=== PATIENT | male | born 1990 | race Caucasian/White ===

== ENCOUNTER 2016-12-30 14:17 | Inpatient (IN) | payer BC, OTHER ==
[~2016-12-30] VITALS: Ht 175.3 cm; Wt 58.5 kg
--- NOTE | 2016-12-30 15:39 | NUR ---
INTAKE ASSESSMENT Patient is a 26 year old female admitting to [facility] for substance dependency. She is alert and orientated X4. Vital signs are within normal limits. Patient was able to answer the majority of questions for admission but is feeling nausea so will continue the admission questions once up on the unit. patient reported no known allergies and a history of seizures from withdrawal as of yesterday. Patient gait is unsteady at this moment. Dr. wong was notified. All safety measures in place. will continue to monitor patient.
--- NOTE | 2016-12-30 15:45 | NUR ---
ADMISSION NOTE VITALS: BP:137/92 HR:110 T: 96.4f O2:99% PAIN:8/10 HEIGHT: 59 WEIGHT:128 ALLERGIES: BAM Patient is a 26 year old female admitted to [facility] on 12/30/16 at 1545. Patient is under the care of Dr. Harris for ETOH, BENZO, and METH. Patient denies suicidal and homicidal ideations at this time. Patient denies being hospitalized in the past 30 days. Patient denies chest pain and SOB. Patient reports taking no home medications. Upon assessment patients skin is intact. CIWA12 upon admission. NKA, she is alert and orientated X4 and able to answer questions necessary for the admission process. Patient is a full code. Vital signs WNL, regular diet, patient reports having a seizure yesterday. Patient denies having a PCP. Breathing is even and unlabored, spO2 is 99% on room air. Patients gait is unsteady at this time and reports feeling extremely nausea from bad heart burn. Patient is on a 1:1 for seizure precautions. Patient has a history of anxiety and ulcerative colitis. Dr. Harris has been notified and has placed the client under observation. All needs have been met. patient has been orientated to her room and the unit. All safety measures are in place per hospital policy. Bed is in lowest position, side rails X2 up and padded, call light within reach. Will continue to monitor. SUBSTANCE ABUSE: 1.ETOH PO/RECTAL 1.7 L last used 12/29/16 been using for 11 years off and on 2.Xanax-PO 16 mg last used 12/29/16 for the past 1.5 years 3.Meth- smoked/rectal 8th a day used a few weeks ago used off /on for the past 6 years
[2016-12-30 16:10] VITALS: BP 137/92
[2016-12-30] MEDS ORDERED: DICYCLOMINE HCL 20 MG TABLET PO PRN (16:30)
[2016-12-30] MEDS ORDERED: THIAMINE HCL 200 MG/2 ML VIAL IM ONE (16:30)
[2016-12-30] MEDS ORDERED: ONDANSETRON 4 MG/2 ML VIAL IM PRN (16:30)
[2016-12-30] MEDS ORDERED: MIRALAX 17 GM POWD.PACK PO PRN (16:30)
[2016-12-30] MEDS ORDERED: ONDANSETRON ODT 4 MG TAB.RAPDIS SL PRN (16:30)
[2016-12-30] MEDS ORDERED: diphenhydrAMINE 50 MG CAPSULE PO PRN (16:30)
[2016-12-30] MEDS ORDERED: IBUPROFEN 400 MG TABLET PO PRN (16:30)
[2016-12-30] MEDS ORDERED: MAG HYDROX/AL HYDROX/SIMETH 30 ML LIQUID UDC PO PRN (16:30)
[2016-12-30] MEDS ORDERED: ACETAMINOPHEN 325 MG TABLET PO PRN (16:30)
[2016-12-30] MEDS ORDERED: DIAZEPAM 10 MG TABLET PO PRN ×2 (16:30)
[2016-12-30] MEDS ORDERED: DIAZEPAM 5 MG TABLET PO PRN (16:30)
[2016-12-30] MEDS ORDERED: MAGNESIUM HYDROXIDE 30 ML LIQUID UDC PO PRN (16:30)
[2016-12-30] MEDS ORDERED: LOPERAMIDE HCL 2 MG CAPSULE PO PRN ×2 (16:30)
[2016-12-30] MEDS ORDERED: LORAZEPAM 2 MG/1 ML VIAL IM PRN (16:30)
[2016-12-30] MEDS: DIAZEPAM 10 MG TABLET PO SCH ×2 (17:21→20:26)
[2016-12-30] MEDS: PANTOPRAZOLE SODIUM 40 MG TABLET.DR PO SCH (17:21)
[2016-12-30 18:26] LABS: *AMPHETAMINE, URINE POSITIVE (NEGATIVE); *BARBITURATE, URINE NEGATIVE (NEGATIVE); *CANNABINOID, URINE NEGATIVE (NEGATIVE); *COCCAINE, URINE NEGATIVE (NEGATIVE); *OPIATE, URINE NEGATIVE (NEGATIVE); *PHENCYCLIDINE SCREEN,URINE NEGATIVE (NEGATIVE)
--- NOTE | 2016-12-30 19:01 | NUR ---
END OF SHIFT NOTE Patient is a 26 years old admitted today for ETOH, XANAX, and METH. Patient has a history of anxiety an ulcerative colitis. NKA, full code, regular diet. Patient has a history of seizures with the most resent one yesterday 12/29/16 due from withdrawal. Patient is on a 1:1 for unsteady gait and seizure precaution. Patients vital signs are WNL. Last CIWA 12. 5 day Valium taper starting tomorrow. Skin is intact. All needs have been met. All safety measures in place. Will continue to monitor patient until endorsed to night nurse.
--- NOTE | 2016-12-30 19:35 | NUR ---
START OF SHIFT Received report from day shift nurse. Pt is lying in bed resting. He is a 26 yo male admitted to [facility] today for ETOH dependence. He is A&O x3 and ambulatory. Pt has a 1:[address] due to unsteady gait on admission. He reports still feeling weak. Pt has NKA, is full code status, and on a regular diet. PMH of seizure, anxiety, and ulcerative colitis. On admission he admitted to using ETOH 1.7L per day, xanax 16mg per day, and methamphetamine 1/8th per day. He started a 5 day valium taper today. Pt is observed to have sweat on the forehead and tremors. He reports acid indigestion and anxiety. Taper due tonight. Fall and seizure precautions ordered. Bed is down with call light in reach.
--- NOTE | 2016-12-30 19:42 | NUR ---
PRN Zofran and Mylanta Pt c/o nausea and acid indigestion. PRN Zofran and Mylanta administered.
[2016-12-30 20:00] VITALS: BP 147/94
--- NOTE | 2016-12-30 20:42 | NUR ---
PRN Zofran and Mylanta reassessment PRN Zofran effective. Pt reports nausea is relieved. PRN Mylanta somewhat effective. Pt reports acid indigestion only mildly reduced.
[2016-12-30] MEDS: FAMOTIDINE 20 MG TABLET PO PRN (20:43)
--- NOTE | 2016-12-30 20:44 | NUR ---
PRN Pepcid and Benadryl Pt reports continued acid indigestion and inability to sleep. PRN Pepcid and Benadryl administered.
[2016-12-30] MEDS ORDERED: GABAPENTIN 300 MG CAPSULE PO SCH (21:00)
--- NOTE | 2016-12-30 21:44 | NUR ---
PRN Pepcid and Benadryl reassessment PRN Pepcid and Benadryl effective. Pt is lying in bed resting with eyes closed. Respirations even and unlabored. 1:[address] for safety[address]
[2016-12-31] VITALS: BP 127/89
[2016-12-31 04:00] VITALS: BP 141/99
--- NOTE | 2016-12-31 04:00 | NUR ---
0400 CIWA deferred CIWA ordered Q4HWA. Pt is lying in bed resting with eyes closed. Vital signs obtained. Safety measures in place.
[2016-12-31] MEDS: PANTOPRAZOLE SODIUM 40 MG TABLET.DR PO SCH (06:56)
--- NOTE | 2016-12-31 07:21 | NUR ---
END OF SHIFT Report provided to day shift nurse. Pt is lying in bed resting. He is a 26 yo male admitted to [facility] on 12/30 for ETOH dependence. He is A&O and ambulatory. 1:[address]ER [address] due to unsteady gait on admission. He reports still feeling weak. Pt has NKA, is full code status, and on a regular diet. PMH of seizure, anxiety, and ulcerative colitis. On admission he admitted to using ETOH 1.7L per day, xanax 16mg per day, and methamphetamine 1/8th per day. He started a 5 day valium taper on 12/30. PRN Zofran, Mylanta, Pepcid, and Benadryl administered. Last CIWA was 3. He drank 100mL and slept for 9 hours. Fall and seizure precautions ordered. Bed is down with call light in reach.
--- NOTE | 2016-12-31 07:22 | NUR ---
Start of Shift Notes: Received patient in her room. Alert and oriented x 4. Verbally responsive. Able to make needs known. Respirations even and unlabored. No SOB noted. SKin warm and dry to touch. Abdomen soft and non-distended. BS (+) in all 4 quadrants. No complains of N/V/D or constipation noted. Voids independently. Ambulatory ad nick with steady gait. Patient is a 26 year old male admitted for ETOH/BZO and methamphetamine dependence who was placed on a 5-day Valium taper as ordered. No adverse reactions noted. Has past medical hx of anxiety, UC, and seizures. NKA. FULL CODE. Regular diet. On fall and seizure precautions. Prior to admission, patient was using 1.7L of ETOH PO/Rectally daily, 16 mg of Xanax and 8th of methamphetamine. Educated patient on his current plan of care for the day and his medication regimen. Encouraged oral fluid intake and encouraged group participation to learn new skills to prevent relapse. On fall and seizure precautions. Will continue to monitor closely. Addendum: 12/31/16 at 0738 by DAY MOLNIA LVN Clarification to above notes: Patient is aon a 1:1 for unsteady gait. Needs SBA when ambulating for safety. Does not have steady gait.
[2016-12-31 07:46] LABS: BASOPHILS # (AUTO) 0.1 K/uL (0.0-8.0); EOSINOPHILS # (AUTO) 0.1 K/uL (0.0-0.7); EOSINOPHILS % (AUTO) 1.1 % (0.0-7.0); HEMATOCRIT 46.4 % (40-50); HEMOGLOBIN 15.2 G/DL (14.0-18.0); LYMPHOCYTES # (AUTO) 1.3 K/UL (0.8-4.8); LYMPHOCYTES % (AUTO) 14.8 % (20.5-51.5); MEAN CORPUSCULAR HEMOGLOBIN 29.3 UUG (27.0-31.0); MEAN CORPUSCULAR HGB CONC 33 g/dL (32.0-37.0); MEAN CORPUSCULAR VOLUME 89.3 FL (82.0-92.0); MONOCYTES # (AUTO) 0.4 K/UL (0.1-1.30); MONOCYTES % (AUTO) 4.7 % (0.0-11.0); NEUTROPHILS # (AUTO) 6.9 K/UL (1.8-8.9); NEUTROPHILS % (AUTO) 78.4 % (38.5-71.5); PLATELET COUNT (AUTO) 434 K/UL (150-450); WHITE BLOOD COUNT (AUTO) 8.8 K/UL (4.0-11.2)
[2016-12-31 08:00] VITALS: BP 134/98
[2016-12-31 08:18] LABS: ALANINE AMINOTRANSFERASE 20 U/L (16-63); ALKALINE PHOSPHATASE 107 U/L (50-136); AMYLASE 38 U/L (25-115); ASPARTATE AMINOTRANSFERASE 20 U/L (15-37); CARBON DIOXIDE 32 mmol/L (21-32); CHLORIDE 101 mmol/L (98-107); GLUCOSE 99 mg/dL (74-106); LIPASE 221 U/L (73-393); MAGNESIUM 2.1 mg/dL (1.8-2.4); POTASSIUM 3.6 mmol/L (3.5-5.1); TOTAL PROTEIN, SERUM 7.1 g/dL (6.4-8.2); UREA NITROGEN, BLOOD 13 mg/dL (7-18)
[2016-12-31 08:41] LABS: ETHANOL < 3 MG/DL (0-0)
[2016-12-31] MEDS ORDERED: THIAMINE HCL 100 MG TABLET PO SCH (09:00)
[2016-12-31] MEDS ORDERED: 5 DAY TAPER VALIUM-SERENITY PROTOCOL PO PRN (09:00)
[2016-12-31] MEDS ORDERED: TUBERCULIN,PURIF.PROT.DERIV. 5 TU/0.1 ML TEST ID ONE (09:00)
[2016-12-31] MEDS ORDERED: MULTIVITAMINS,THERAPEUTIC TABLET PO SCH (09:00)
[2016-12-31] MEDS ORDERED: FOLIC ACID 1 MG TABLET PO SCH (09:00)
[2016-12-31] MEDS ORDERED: DOCUSATE SODIUM 250 MG CAPSULE PO SCH (09:00)
[2016-12-31] MEDS: GABAPENTIN 300 MG CAPSULE PO SCH ×2 (09:10→14:23)
[2016-12-31] MEDS: DIAZEPAM 10 MG TABLET PO SCH ×3 (09:10→16:16)
[2016-12-31 12:00] VITALS: BP 126/93
--- NOTE | 2016-12-31 12:30 | NUR ---
Off 1:1 Patient is ambulator with steady gait. Appears motivated to sobriety. VS stable. Notified MD. 1:! dc'd at this time.
--- NOTE | 2016-12-31 13:01 | NUR ---
MD Communication: Patient noted with HR 141 at rest. Denies any complains of chest pain, chest discomfort. or lightheadedness. Notified MD Steven with orders to do EKG "Stat." MD is out of the building and unable to enter orders. Orders noted and carried out.
--- NOTE | 2016-12-31 13:30 | NUR ---
MD Communication: EKG Patient's EKG done. Notifed Dr. Harris of results. NNO made.
[2016-12-31] MEDS: FAMOTIDINE 20 MG TABLET PO PRN (14:23)
--- NOTE | 2016-12-31 14:23 | NUR ---
Miralax 17gm/Bentyl 20mg/Pepcid 20 mg PO given: Patient noted with complain of constipation, abdominal cramps and GI upset. Requested for meds. Oral fluids and activity encouraged. Medicated patient with Miralax 17gm PO, Bentyl 20 mg PO and Pepcid 20 mg PO as ordered. Will monitor for effectiveness.
--- NOTE | 2016-12-31 15:23 | NUR ---
Re-assessment: Per patient, PRN Miralax has not been effective, Bentyl 20 mg PO effective in reducing abdominal cramps, and Pepcid was effective in reducing GI upset.
[2016-12-31 16:00] VITALS: BP 134/89
--- NOTE | 2016-12-31 18:43 | NUR ---
End of Shift Notes: Patient continues to be on 5-day Valium taper as ordered. No adverse reactions noted. VS monitored closely q 4 hours. Noted with elevated HR, per patient she always has elevated HR. EKG done and notified MD. DUARTE made. Withdrawal symptoms were closely monitored. Initial CIWA 11, patient presented with anxiety, agitation, sweats, tremors, fatigue. Last CIWA 4. Medicated patient with Miralax, Bentyl and Pepcid at 1423 for constipation, stomach cramps and GI upset with help after 1 hour. Compliant with care and treatment. Encouraged oral fluid intake. Unable to attend group and activities due to her withdrawal symptoms. All needs met and attended. Will continue to monitor closely.
--- NOTE | 2016-12-31 19:35 | NUR ---
START OF SHIFT Received report from day shift nurse. Pt is in his room receiving laundry. He is a 26 yo male admitted to [facility] on 12/30 for ETOH dependence. He is A&O x3 and ambulatory. Pt has NKA, is full code status, and on a regular diet. PMH of seizure, anxiety, and ulcerative colitis. On admission he admitted to using ETOH 1.7L per day, xanax 16mg per day, and methamphetamine 1/8th per day. 5 Day valium taper started 12/30. Pt reports anxiety and is verbalizing the desire to leave AMA due to financial matters and his living situation. Encouraged patient to continue with treatment. Fall and seizure precautions ordered. Bed is down with call light in reach.
[2016-12-31 20:00] VITALS: BP 134/96
--- NOTE | 2016-12-31 20:10 | NUR ---
RN note AMA Pt verbalized: "This is not the place for me. I am not ready because of my financial issues." Pt was insisted on leaving despite the explanation of the risks and benefits of AMA. Vital signs are stable. No SOB noted. Pt's belongings were returned to patient. Harrison, compliance administrator, was informed and he spoke with the patient. Dr. Harris was notified. Pt left the unit stable and accompanied by a SPECIAL EVENTS MANAGER and Harrison compliance administrator.
[2016-12-31] MEDS ORDERED: QUETIAPINE FUMARATE 100 MG TABLET PO SCH (21:00)
[2017-01-01 08:08] LABS: HEPATITIS B SURFACE AG Negative (Negative)
[2017-01-01] MEDS ORDERED: GABAPENTIN 300 MG CAPSULE PO SCH (09:00)
[2017-01-01] MEDS ORDERED: DIAZEPAM 10 MG TABLET PO SCH (09:00)
[2017-01-02] MEDS ORDERED: DIAZEPAM 5 MG TABLET PO SCH (09:00)
[2017-01-03] MEDS ORDERED: DIAZEPAM 5 MG TABLET PO SCH (09:00)
[2017-01-04] MEDS ORDERED: DIAZEPAM 5 MG TABLET PO SCH (09:00)
== END 2016-12-31 20:10 | disposition left against medical advice (07) | DRG 894 ==
LOC: EDSEX 14:46 → SRC 14:46
PROVIDERS: ADMIT Internal Medicine; ATTEND Internal Medicine
PROC: HZ2ZZZZ Detoxification Services for Substance Abuse Treatment (ICD-10-PCS; principal; 2016-12-30)
DX: F10.230 Alcohol dependence with withdrawal, uncomplicated (principal); F13.239 Sedative, hypnotic or anxiolytic dependence with withdrawal, unspecified; F32.9 Major depressive disorder, single episode, unspecified; F41.1 Generalized anxiety disorder; F64.8 Other gender identity disorders; Y90.9 Presence of alcohol in blood, level not specified; F90.9 Attention-deficit hyperactivity disorder, unspecified type; K21.9 Gastro-esophageal reflux disease without esophagitis; Z87.891 Personal history of nicotine dependence; K58.9 Irritable bowel syndrome, unspecified
CPT/HCPCS: 36415; 80307; 80324; 80346; 83690; 83735; 85025; 86580; 86592; 86705; 86803; 87340; 87806; 93005; A4663; G0480; J3411; Q0162; Q0163

== ENCOUNTER 2017-01-28 20:08 | Inpatient (IN) | payer BC, OTHER ==
[~2017-01-28] VITALS: Ht 172.7 cm; Wt 61.2 kg
[2017-01-28 23:30] VITALS: BP 157/88
--- NOTE | 2017-01-28 23:30 | NUR ---
Pre-Admission Patient seen in intake office. Patient is notably intoxicated but stable to proceed with admission process. Vital signs rendered and noted to be 157/88, 112, 18, 98.0, 99%, 0/10. Patient verbalizes no known allergies. Home medication and policies reviewed with patient. Patient is able to verbalize understanding. Will continue with admission process to unit.
[2017-01-29] MEDS ORDERED: LOPERAMIDE HCL 2 MG CAPSULE PO PRN ×2
[2017-01-29] MEDS ORDERED: ACETAMINOPHEN 325 MG TABLET PO PRN
[2017-01-29] MEDS ORDERED: MIRALAX 17 GM POWD.PACK PO PRN
[2017-01-29] MEDS ORDERED: MAGNESIUM HYDROXIDE 30 ML LIQUID UDC PO PRN
[2017-01-29] MEDS ORDERED: THIAMINE HCL 200 MG/2 ML VIAL IM ONE
[2017-01-29] MEDS ORDERED: LORAZEPAM 2 MG/1 ML VIAL IM PRN
[2017-01-29] MEDS ORDERED: CLONIDINE HCL 0.1 MG TABLET PO PRN
[2017-01-29] MEDS ORDERED: LORAZEPAM 1 MG TABLET PO PRN ×2
[2017-01-29] MEDS ORDERED: LORAZEPAM 1 MG TABLET PO ONE
[2017-01-29] MEDS ORDERED: MAG HYDROX/AL HYDROX/SIMETH 30 ML LIQUID UDC PO PRN
[2017-01-29] MEDS ORDERED: ONDANSETRON 4 MG/2 ML VIAL IM PRN
[2017-01-29 00:20] VITALS: BP 146/88
--- NOTE | 2017-01-29 00:20 | NUR ---
Admission Patient is a 26 year old male from [facility] admitted to [facility] to receive treatment for his ETOH Dependence. Patient was escorted on to unit by male ENERGY DIRECTOR where body check was rendered. Skin noted intact. Patient verbalizes no known allergies. Height noted as 5'8 and weight noted as 130lbs. Patient is ambulatory with no assistance needed. Breathing is even and non labored with no signs of SOB. No pain or discomfort verbalized. BUE and BLE noted to be WNL with no edema noted. Lung sounds clear with no cough noted. Bowel sounds are active in all 4 quadrants with LBM noted 01/26/17. Patient verbalizes past medical history of seizures (Dec 2016), PTSD, Depression, Anxiety. Patient noted with home medicaiton of Nexium and medication reconciled. Patient denies any suicidal ideations. He describes his usage as: 1. ETOH- Vodka, consuming 1.75 liters daily via po and rectally with last dose noted to be prior to admission. 2. methamphetamines, using "1 oz a week" with last dose noted to be 01/26/17. Patient explains his signs and symptoms of "i get seizures when I withdrawal, delusional, clamy, sweats. 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 Patient noted to have been to multiple treatment facilities with the last on noted 1 week ago to [facility] in [place]. Admission CIWA noted to be 0. All information reviewed with Dr. Pennington Labs to be rendered. PRN medications available for increased signs and symptoms. Will continue plan of care as ordered. Addendum: 01/29/17 at 0555 by SAMI RENNER LVN Patient noted to be poor historian during admission assessment with poor attention span, hyperverbal, labile and tangential thought process.
[2017-01-29 01:11] LABS: BILIRUBIN,TOTAL 0.3 mg/dL (0.2-1.0); CREATININE 1.1 mg/dL (0.6-1.3); MAGNESIUM 1.6 mg/dL (1.8-2.4); POTASSIUM 3.2 mmol/L (3.5-5.1); TOTAL PROTEIN, SERUM 7.4 g/dL (6.4-8.2)
[2017-01-29 01:22] LABS: BASOPHILS # (AUTO) 0.1 K/uL (0.0-8.0); BASOPHILS % (AUTO) 1.3 % (0.0-2.0); EOSINOPHILS % (AUTO) 0.5 % (0.0-7.0); HEMATOCRIT 40.4 % (40-50); HEMOGLOBIN 13.4 G/DL (14.0-18.0); LYMPHOCYTES # (AUTO) 1.3 K/UL (0.8-4.8); LYMPHOCYTES % (AUTO) 14.1 % (20.5-51.5); MEAN CORPUSCULAR HEMOGLOBIN 28.8 UUG (27.0-31.0); MEAN CORPUSCULAR HGB CONC 33 g/dL (32.0-37.0); MEAN CORPUSCULAR VOLUME 87.3 FL (82.0-92.0); MONOCYTES # (AUTO) 0.5 K/UL (0.1-1.30); MONOCYTES % (AUTO) 4.8 % (0.0-11.0); NEUTROPHILS # (AUTO) 7.6 K/UL (1.8-8.9); NEUTROPHILS % (AUTO) 79.3 % (38.5-71.5); PLATELET COUNT (AUTO) 468 K/UL (150-450); RED BLOOD CELL COUNT(AUTO) 4.63 MIL/UL (4.7-6.1); WHITE BLOOD COUNT (AUTO) 9.5 K/UL (4.0-11.2)
[2017-01-29] MEDS ORDERED: LORAZEPAM 1 MG TABLET ONE (01:31)
[2017-01-29 01:42] LABS: *AMPHETAMINE, URINE POSITIVE (NEGATIVE); *BARBITURATE, URINE NEGATIVE (NEGATIVE); *CANNABINOID, URINE NEGATIVE (NEGATIVE); *COCCAINE, URINE NEGATIVE (NEGATIVE); *OPIATE, URINE NEGATIVE (NEGATIVE); *PHENCYCLIDINE SCREEN,URINE NEGATIVE (NEGATIVE)
[2017-01-29] MEDS ORDERED: POTASSIUM CHLORIDE 20 MEQ TAB.PRT.SR PO ONE (01:45)
[2017-01-29] MEDS ORDERED: MAGNESIUM OXIDE 400 MG TABLET PO ONE (01:45)
[2017-01-29] MEDS ORDERED: MAGNESIUM OXIDE 400 MG TABLET ONE (01:58)
[2017-01-29] MEDS ORDERED: POTASSIUM CHLORIDE 20 MEQ TAB.PRT.SR ONE (01:58)
[2017-01-29] MEDS ORDERED: ONDANSETRON ODT 4 MG TAB.RAPDIS ONE (02:14)
[2017-01-29] MEDS: ONDANSETRON ODT 4 MG TAB.RAPDIS SL PRN (02:20)
--- NOTE | 2017-01-29 02:20 | NUR ---
PRN Zofran ODT: Patient complains of nausea. Administered PRN Zofran ODT as ordered. Will reassess in 30 minutes.
--- NOTE | 2017-01-29 02:50 | NUR ---
PRN ZOFRAN EFFECTIVE: Patient denies nausea at this time. PRN Zofran ODT effective.
[2017-01-29 04:48] VITALS: BP 128/79
--- NOTE | 2017-01-29 07:27 | NUR ---
End of Shift Patient is in bed sleeping but arousable to verbal stimuli. Breathing even and non labored. No pain or discomfort noted. Patient is a 31 year old male admitted on 01/25/17 for ETOH and Opiate Dependence. Patient is currently receiving a modified Subutex and Ativan taper. No known allergies, Full code, following a regular diet, placed on fall and seizure precautions, skin noted intact. Past medical history noted as anxiety, depression, spinal fusion (2012), bilateral hand surgery (2016). Patient was given PRN Toradol for increased lower back pain. Patient noted to go out for smoke breaks, noted to have snacks at bedside, and able to verbalize feelings. Offered support and patient was receptive. Last noted CIWA 2 and COWS 3. All needs attended to promptly. Will endorse to continue plan of care as ordered. Addendum: 01/29/17 at 0729 by SAMI RENNER LVN ENTERED IN ERROR
--- NOTE | 2017-01-29 07:28 | NUR ---
End of Shift Patient is in bed sleeping but easily aroused to verbal stimuli. Breathing even and non labored. No signs of pain or discomfort noted. Patient is a 26 year old male admitted on 01/29/17 for ETOH Dependence under the care of Dr. Pennington. PRN medications available for increased signs and symptoms of withdrawal. No known allergies, wishes to be full code, following a regular diet, placed on fall and seizure precautions, and skin noted intact. Patient received. Ativan 2mg x1 as per MD order as well as PRN Zofran for nausea. PRN medications noted to be effective. Labs drawn and noted Potassium of 3.4 and Magnesium of 1.6 which were supplemented. All needs attended to promptly. Will endorse to continue plan of care as ordered.
--- NOTE | 2017-01-29 07:30 | NUR ---
START OF SHIFT Pt 26 y/o male admitted for etoh dependence. Pt received in room on bed with eyes closed resting, but easily arousable to name. Pt alert and oriented to name, place, and time. Perrla. Skin warm and slightly moist to touch. Respirations even and unlabored. Bilateral hand tremors noted slightly. It was reported that pt slept for 4 hours last night. Bed on lowest position with side rails x2 up for safety. Call light within reach. No distress noted at this time.
[2017-01-29 08:00] VITALS: BP 118/70
[2017-01-29] MEDS ORDERED: TUBERCULIN,PURIF.PROT.DERIV. 5 TU/0.1 ML TEST ID ONE (09:00)
[2017-01-29] MEDS: GABAPENTIN 300 MG CAPSULE PO SCH ×3 (09:04→21:42)
[2017-01-29] MEDS: MULTIVITAMINS,THERAPEUTIC TABLET PO SCH (09:04)
[2017-01-29] MEDS: FOLIC ACID 1 MG TABLET PO SCH (09:04)
[2017-01-29] MEDS: THIAMINE HCL 100 MG TABLET PO SCH (09:04)
[2017-01-29] MEDS: LORAZEPAM 1 MG TABLET PO SCH ×4 (09:05→21:42)
[2017-01-29] MEDS ORDERED: DICYCLOMINE HCL 20 MG TABLET PO PRN (11:00)
[2017-01-29 12:49] VITALS: BP 119/68
[2017-01-29] MEDS: IBUPROFEN 400 MG TABLET PO PRN (14:47)
--- NOTE | 2017-01-29 14:50 | NUR ---
PRN Pt states has headache 4/10. Motrin po prn per MD order given and tolerated well.
--- NOTE | 2017-01-29 14:50 | NUR ---
PRN Pt states feels anxious. Catapres po prn per MD order given and tolerated well.
--- NOTE | 2017-01-29 15:50 | NUR ---
PRN EVAL Pt observed laying on bed awake. No distress noted at this time.
--- NOTE | 2017-01-29 15:50 | NUR ---
PRN EVAL Pt states headache 06/18.
[2017-01-29 17:16] VITALS: BP 110/73
--- NOTE | 2017-01-29 17:57 | NUR ---
END OF SHIFT Pt 26 y/o male admitted for etoh dependence. Pt alert and oriented to name, place, and time. Perrla. Skin warm and slightly moist to touch. Respirations even and unlabored. Bilateral hand tremors noted. Pt isolative to room throughout the day. Pt did not attend group activity today. Pt was seen by MD today. Pt medication compliant and tolerated well. No ASE noted. Bed on lowest position with side rails x2 up for safety. Call light within reach. No distress noted at this time.
--- NOTE | 2017-01-29 19:05 | NUR ---
Start of Shift Patient Received. Patient is in bed sleeping but easily aroused to verbal stimuli. Breathing even and non labored. No signs of pain or discomfort noted. Patient is a 26 year old male admitted on 01/29/17 for ETOH Dependence under the care of Dr. Pennington. Patient was started on a 5 day Ativan taper. No known allergies, Full Code, Regular diet, placed on fall and seizure precautions, and skin noted intact. Per endorsement, patient was given PRN Motrin for headache which was noted to be effective. Last noted CIWA 3. All needs attended to promptly. Will continue plan of care as ordered.
[2017-01-29 20:30] VITALS: BP 107/71
[2017-01-30 00:31] VITALS: BP 105/73
[2017-01-30 04:20] VITALS: BP 97/53
[2017-01-30] MEDS: PANTOPRAZOLE SODIUM 40 MG TABLET.DR PO SCH (06:31)
--- NOTE | 2017-01-30 07:03 | NUR ---
End of Shift Patient is in bed sleeping but easily aroused to verbal stimuli. Breathing even and non labored. No signs of pain or discomfort noted. Patient is a 26 year old male admitted on 01/29/17 for ETOH Dependence under the care of Dr. Pennington and continues on a 5 day Ativan taper. No known allergies, Full Code, Regular diet, placed on fall and seizure precautions, and skin noted intact. No PRN Medications administered. Patient slept a total of 11 hours. Last noted CIWA 3. All needs attended to promptly. Will endorse to continue plan of care as ordered. Addendum: 01/30/17 at 0703 by SAMI RENNER LVN Amended: Links added.
--- NOTE | 2017-01-30 07:30 | NUR ---
Start of shift note; Patient is AOX4. Patient is a 26 year old male admitted on 01/28/17 for ETOH and methamphetamine dependence. Patient was placed on Ativan taper, no adverse reaction noted. Patient reported history of seizure, PTSD, depression, anxiety. Patient is high risk for AMA per endorsement. Patient is on fall and seizure precaution. Bed in lowest position, call light within reach. All safety measures secured. Will continue to monitor patient.
[2017-01-30 08:00] VITALS: BP 117/72
[2017-01-30] MEDS: LORAZEPAM 1 MG TABLET PO SCH ×3 (08:15→21:17)
[2017-01-30] MEDS: FOLIC ACID 1 MG TABLET PO SCH (08:15)
[2017-01-30] MEDS: MULTIVITAMINS,THERAPEUTIC TABLET PO SCH (08:15)
[2017-01-30] MEDS: THIAMINE HCL 100 MG TABLET PO SCH (08:15)
[2017-01-30] MEDS: GABAPENTIN 300 MG CAPSULE PO SCH ×3 (08:15→21:16)
[2017-01-30 12:00] VITALS: BP 124/83
[2017-01-30 12:06] LABS: HEPATITIS B SURFACE AG Negative (Negative)
[2017-01-30 16:00] VITALS: BP 128/83
--- NOTE | 2017-01-30 18:21 | NUR ---
End of shift note; Patient is AOX4. Patient is a 26 year old male admitted on 01/28/17 for ETOH and methamphetamine dependence. Patient was placed on Ativan taper, no adverse reaction noted. Patient reported history of seizure, PTSD, depression, anxiety. Patient remained compliant with treatment plan. Medications were effective in reducing withdrawal symptoms. Patient participated in group therapy and activities. Met all needs.
[2017-01-30 20:00] VITALS: BP 141/91
--- NOTE | 2017-01-30 20:00 | NUR ---
START OF SHIFT Pt is a 26 y/o male (transgender, prefers female) admitted on 01/28/17 for ETOH and meth dependence. Pt was dependent on vodka 1.75 liters daily and meth 1 oz per week. Pt is full code, NKA, regular diet, and on fall and seizure precautions. Pt had seizure r/t withdrawal last month. Pt reports PMH of PTSD, anxiety, and depression. Pt started on a 5 day Ativan taper on 01/29/17, tolerating well. No PRNs given during day shift. Upon assessment pt presents with anxiety, nausea, mild sweats, and mild sensitivity to light. Pt also complains of heartburn. Respirations 18, even and unlabored. Denies V/D. Denies SI/HI. Denies chest pain or SOB. Medications due. Safety measures in place. Call light within reach. Will continue to monitor.
--- NOTE | 2017-01-30 21:16 | NUR ---
PRN BENADRYL, MAALOX, AND ZOFRAN ADMINISTRATION Pt complains of heartburn and nausea. No vomiting. Pt also requests a sleep aid. Safety measures in place. Call light within reach. Will continue to monitor.
[2017-01-30] MEDS: diphenhydrAMINE 50 MG CAPSULE PO PRN (21:17)
[2017-01-30] MEDS: ONDANSETRON ODT 4 MG TAB.RAPDIS SL PRN (21:17)
--- NOTE | 2017-01-30 21:46 | NUR ---
ZOFRAN REASSESSMENT Pt is laying in bed with eyes closed. Safety measures in place Call light within reach. Will continue to monitor.
--- NOTE | 2017-01-30 22:16 | NUR ---
BENADRYL AND MAALOX REASSESSMENT Pt is laying in bed with eyes closed. Safety measures in place. Call light within reach. Will continue to monitor.
--- NOTE | 2017-01-31 | NUR ---
VITAL SIGNS Pt refused vital signs. COWS/CIWA deferred d/t pt laying in bed with eyes closed, to be reassessed when pt is fully awake per orders. Respirations 16, even and unlabored. Safety measures in place. Call light within reach. Will continue to monitor. Addendum: 01/31/17 at 0432 by CHRISTIAN GARCIA RN CIMACY deferred. Not COW/CIWA
--- NOTE | 2017-01-31 04:00 | NUR ---
VITAL SIGNS Pt refused vital signs. CIWA deferred, pt is laying in bed with eyes closed. Respirations 16, even and unlabored. Safety measures in place. Call light within reach.
[2017-01-31] MEDS: PANTOPRAZOLE SODIUM 40 MG TABLET.DR PO SCH (06:50)
[2017-01-31 07:00] LABS: BILIRUBIN,DIRECT 0.1 mg/dL (0.0-0.2); BILIRUBIN,TOTAL 0.2 mg/dL (0.2-1.0); CREATININE 0.8 mg/dL (0.6-1.3); MAGNESIUM 1.9 mg/dL (1.8-2.4); POTASSIUM 3.9 mmol/L (3.5-5.1); TOTAL PROTEIN, SERUM 5.9 g/dL (6.4-8.2)
--- NOTE | 2017-01-31 07:18 | NUR ---
END OF SHIFT Pt is a 26 y/o male (transgender, prefers female) admitted on 01/28/17 for ETOH and meth dependence. Pt was dependent on vodka 1.75 liters daily and meth 1 oz per week. Pt is full code, NKA, regular diet, and on fall and seizure precautions. Pt had seizure r/t withdrawal last month. Pt reports PMH of PTSD, anxiety, and depression. Pt started on a 5 day Ativan taper on 01/29/17, tolerating well. Pt presented with anxiety, nausea, mild sweats, and mild sensitivity. Pt also complained of heartburn. Scheduled medications and PRN Zofran, Benadryl, and Maalox administered, effective in S/S of withdrawal as verbalized by pt. Last CIWA 4. Slept 9 hours, intake 1535 ml, void x 3, stool x 0. Respirations 18, even and unlabored. Denies N/V/D. Denies SI/HI. Denies chest pain or SOB. Safety measures in place. Call light within reach. Endorsed to day shift nurse.
--- NOTE | 2017-01-31 07:55 | NUR ---
START OF SHIFT NOTE Received report from night nurse, Pt is a 26 year old male admitted for ETOH dependence. Pt cont on 5 day Ativan taper. Pt reported PMH of seizure, PTSD,depression, anxiety. Per endorsement pt received PRN Zofran/Benadryl/Maalox effective per night nurse, last CIWA was-4, Slept for 9 hours. Pt received in bed awake, alert and oriented x4, Skin intact warm and dry to touch. Pt educated regarding plan of care for the day with good verbal understanding. Safety measures in place, call light kept with in reach, will continue to monitor.
[2017-01-31 08:00] VITALS: BP 123/74
[2017-01-31] MEDS: THIAMINE HCL 100 MG TABLET PO SCH (08:46)
[2017-01-31] MEDS: GABAPENTIN 300 MG CAPSULE PO SCH ×3 (08:46→21:33)
[2017-01-31] MEDS: MULTIVITAMINS,THERAPEUTIC TABLET PO SCH (08:46)
[2017-01-31] MEDS: FOLIC ACID 1 MG TABLET PO SCH (08:46)
[2017-01-31] MEDS: LORAZEPAM 1 MG TABLET PO SCH ×4 (08:47→21:33)
[2017-01-31] MEDS: IBUPROFEN 400 MG TABLET PO PRN (09:24)
--- NOTE | 2017-01-31 09:24 | NUR ---
PRN MOTRIN Pt c/o of headache 08/16, Pt was given PRN Motrin 400mg Po as ordered. Will cont to monitor for effectiveness.
--- NOTE | 2017-01-31 10:24 | NUR ---
MOTRIN REASSESSMENT Pt reported medication effective headache decreased to 0/10.
[2017-01-31 12:00] VITALS: BP 115/68
[2017-01-31 16:00] VITALS: BP 131/85
--- NOTE | 2017-01-31 19:13 | NUR ---
END OF SHIFT NOTE Pt presented with headache. Pt was given PRN Motrin 400mg Po effective. Vital signs WNL. Pt cont with 5 day Ativan taper tolerating well and medications were effective in reducing withdrawal symptoms. with evidence of low CIWA score 4. Pt remained compliant with medication and treatment plan. Pt attended groups and activities. Encouraged Po fluids as tolerated. All needs attended. Pt endorsed to night nurse in stable condition.
[2017-01-31 20:00] VITALS: BP 130/84
--- NOTE | 2017-01-31 20:00 | NUR ---
START OF SHIFT Pt is a 26 y/o male (transgender, prefers female) admitted on 01/28/17 for ETOH and meth dependence. Pt was dependent on vodka 1.75 liters daily and meth 1 oz per week. Pt is full code, NKA, regular diet, and on fall and seizure precautions. Pt had seizure r/t withdrawal last month. Pt reports PMH of PTSD, anxiety, and depression. Pt started on a 5 day Ativan taper on 01/29/17, tolerating well. Upon assessment pt presents with moderate anxiety, mild sweats, and restlessness. Respirations 18, even and unlabored. Denies N/V/D. Denies SI/HI. Denies chest pain or SOB. Medications due. Safety measures in place. Call light within reach. Will continue to monitor.
[2017-01-31] MEDS: diphenhydrAMINE 50 MG CAPSULE PO PRN (21:37)
--- NOTE | 2017-01-31 21:37 | NUR ---
PRN BENADRYL ADMINISTRATION Pt requests medication for sleep aid. Pt presents with restlessness and anxiety. Respirations 18, even and unlabored. Safety measures in place. Call light within reach. Will continue to monitor.
--- NOTE | 2017-01-31 22:37 | NUR ---
PRN BENADRYL REASSESSMENT Pt is laying in bed with eyes closed. Respirations 18, even and unlabored. Safety measures in place. Call light within reach. Will continue to monitor.
[2017-02-01] VITALS: BP 108/61
--- NOTE | 2017-02-01 | NUR ---
VITAL SIGNS BP 108/61, P 92, R 16, 02 98%, 7 97.9, PA 0/10 CIWA deferred. Pt is laying in bed with eyes closed, to be assessed when pt is awake per orders. Respirations even and unlabored. Safety measures in place. Call light within reach. Will continue to monitor.
[2017-02-01 04:00] VITALS: BP 107/63
--- NOTE | 2017-02-01 04:00 | NUR ---
VITAL SIGNS BP 107/63, P 82, R 14, 02 100%, T 97.7, PA 0/10 CIWA deferred. Pt is laying in bed with eyes closed, to be assessed when pt is awake per orders. Respirations even and unlabored. Safety measures in place. Call light within reach. Will continue to monitor.
[2017-02-01] MEDS: PANTOPRAZOLE SODIUM 40 MG TABLET.DR PO SCH (06:52)
--- NOTE | 2017-02-01 07:07 | NUR ---
END OF SHIFT Pt is a 26 y/o male (transgender, prefers female) admitted on 01/28/17 for ETOH and meth dependence. Pt was dependent on vodka 1.75 liters daily and meth 1 oz per week. Pt is full code, NKA, regular diet, and on fall and seizure precautions. Pt had seizure r/t withdrawal last month. Pt reports PMH of PTSD, anxiety, and depression. Pt started on a 5 day Ativan taper on 01/29/17, tolerating well. Pt presented with moderate anxiety, mild sweats, and restlessness. Scheduled medications and PRN Benadryl administered, effective in S/S of withdrawal as verbalized by pt. Last CIWA 4. Slept 8 hours, intake 1350 ml, void x 2, stool x 1. Respirations 16, even and unlabored. Denies N/V/D. Denies SI/HI. Denies chest pain or SOB. Safety measures in place. Call light within reach. Endorsed to day shift nurse.
--- NOTE | 2017-02-01 07:38 | NUR ---
START OF SHIFT NOTE Received report from night nurse, Pt is a 26 year old male admitted for ETOH dependence. Pt cont on 5 day Ativan taper. Pt reported PMH of seizure, PTSD,depression, anxiety. Per endorsement pt received PRN Benadryl effective per night nurse, last CIWA was-4, Slept for 8 hours. Pt received in bed awake, alert and oriented x4, Skin intact warm and dry to touch. Pt educated regarding plan of care for the day with good verbal understanding. Safety measures in place, call light kept with in reach, will continue to monitor.
[2017-02-01 08:00] VITALS: BP 111/76
[2017-02-01] MEDS: GABAPENTIN 300 MG CAPSULE PO SCH ×3 (08:39→21:38)
[2017-02-01] MEDS: MULTIVITAMINS,THERAPEUTIC TABLET PO SCH (08:39)
[2017-02-01] MEDS: THIAMINE HCL 100 MG TABLET PO SCH (08:39)
[2017-02-01] MEDS: LORAZEPAM 1 MG TABLET PO SCH ×3 (08:39→21:00)
[2017-02-01] MEDS: FOLIC ACID 1 MG TABLET PO SCH (08:39)
[2017-02-01] MEDS: IBUPROFEN 400 MG TABLET PO PRN ×2 (08:45→21:38)
--- NOTE | 2017-02-01 08:45 | NUR ---
PRN MOTRIN Pt c/o of headache 08/16, Pt was given PRN Motrin 400mg Po as ordered. Will cont to monitor for effectiveness.
--- NOTE | 2017-02-01 09:45 | NUR ---
MOTRIN REASSESSMENT Pt reported medication effective headache decreased to 0/10.
[2017-02-01 12:00] VITALS: BP 124/77
--- NOTE | 2017-02-01 15:00 | NUR ---
REFUSED MEDS Pt refused her scheduled Ativan 1mg Po, Neurontin 300mg Po CIWA score was 2, denies any pain or discomfort at this time offered x3 risk and benefits explained, Pt verbalized understanding. notified. Will cont to monitor.
[2017-02-01 16:00] VITALS: BP 122/88
--- NOTE | 2017-02-01 19:06 | NUR ---
END OF SHIFT NOTE Pt presented with headache. Pt was given PRN Motrin 400mg Po effective. Vital signs WNL. Pt cont with 5 day Ativan taper tolerating well and medications were effective in reducing withdrawal symptoms. with evidence of low CIWA score 2. Pt refused scheduled Ativan and Neurontin at 1500, MD aware. Pt remained compliant with medication and treatment plan. Pt attended groups and activities. Encouraged Po fluids as tolerated. All needs attended. Pt endorsed to night nurse in stable condition.
[2017-02-01 20:00] VITALS: BP 135/82
--- NOTE | 2017-02-01 20:00 | NUR ---
START OF SHIFT Pt is a 26 y/o male (transgender, prefers female) admitted on 01/28/17 for ETOH and meth dependence. Pt was dependent on vodka 1.75 liters daily and meth 1 oz per week. Pt is full code, NKA, regular diet, and on fall and seizure precautions. Pt had seizure r/t withdrawal last month. Pt reports PMH of PTSD, anxiety, and depression. Pt started on a 5 day Ativan taper on 01/29/17, tolerating well. Upon assessment pt presents with anxiety, headache, mild nausea and restlessness. Pt reported that she was verbalizing feelings of wanting to leave AMA during day shift, then decided to stay but verbalized wanting to leave earlier than anticipated. Respirations 18, even and unlabored. Denies V/D. Denies SI/HI. Denies chest pain or SOB. Medications due. Safety measures in place. Call light within reach. Will continue to monitor.
--- NOTE | 2017-02-01 21:00 | NUR ---
SCHEDULED ATIVAN 1 MG REFUSAL Pt verbalized not wanting to take scheduled Ativan 1 mg. Educated client risks of not taking scheduled tapered dose. Client understood. Safety measures in place. Call light within reach. Will continue to monitor.
[2017-02-01] MEDS: ONDANSETRON ODT 4 MG TAB.RAPDIS SL PRN (21:38)
[2017-02-01] MEDS: diphenhydrAMINE 50 MG CAPSULE PO PRN (21:38)
--- NOTE | 2017-02-01 21:38 | NUR ---
PRN BENADRYL, MOTRIN, AND ZOFRAN ADMINISTRATION Administered PRN Bendaryl 50 mg, Motrin 400 mg, and Zofran 4 mg d/t pt complaining of restlessness, mild headache, and mild nausea. Safety measures in place. Call light within reach. Will continue to monitor.
--- NOTE | 2017-02-01 22:08 | NUR ---
PRN ZOFRAN REASSESSMENT Pt is laying in bed with eyes closed. Respirations 16, even and unlabored. Safety measures in place, call light within reach, will continue to monitor.
--- NOTE | 2017-02-01 22:38 | NUR ---
PRN BENADRYL AND MOTRIN REASSESSMENT Pt is laying in bed with eyes closed. Respirations 16, even and unlabored. Safety measures in place, call light within reach, will continue to monitor.
--- NOTE | 2017-02-02 | NUR ---
VITAL SIGNS Pt refused vital signs. CIWA deferred d/t pt laying in bed with eyes closed, to be assessed when pt is fully awake per orders. Respirations 16, even and unlabored. Safety measures in place. Call light within reach. Will continue to monitor.
[2017-02-02] MEDS: PANTOPRAZOLE SODIUM 40 MG TABLET.DR PO SCH (06:51)
--- NOTE | 2017-02-02 07:22 | NUR ---
END OF SHIFT Pt is a 26 y/o male (transgender, prefers female) admitted on 01/28/17 for ETOH and meth dependence. Pt was dependent on vodka 1.75 liters daily and meth 1 oz per week. Pt is full code, NKA, regular diet, and on fall and seizure precautions. Pt had seizure r/t withdrawal last month. Pt reports PMH of PTSD, anxiety, and depression. Pt started on a 5 day Ativan taper on 01/29/17, tolerating well. Pt presented with anxiety, headache, mild nausea and restlessness. Scheduled medications administered and PRN Benadryl, Zofran, and Motrin, effective in S/S of withdrawal as verbalized by pt. Scheduled Ativan 1 mg refused by pt. Last CIWA 2. Slept 8 hours, intake 1415 ml, void x 3, stool x 0. Respirations 16, even and unlabored. Denies N/V/D. Denies SI/HI. Denies chest pain or SOB. Safety measures in place. Call light within reach. Endorsed to day shift nurse.
[2017-02-02] MEDS: GABAPENTIN 300 MG CAPSULE PO SCH (08:29)
[2017-02-02] MEDS: MULTIVITAMINS,THERAPEUTIC TABLET PO SCH (08:29)
[2017-02-02] MEDS: FOLIC ACID 1 MG TABLET PO SCH (08:29)
[2017-02-02] MEDS: THIAMINE HCL 100 MG TABLET PO SCH (08:29)
[2017-02-02 08:34] VITALS: BP 112/67
--- NOTE | 2017-02-02 08:36 | NUR ---
START OF SHIFT 26 y/o male (transgender, prefers female) admitted on 01/28/17 for ETOH and meth dependence. Pt is full code, NKA, regular diet, and on fall and seizure precautions. Pt had seizure r/t withdrawal last month. Pt reports PMH of PTSD, anxiety, and depression. Pt started on a 5 day Ativan taper on 01/29/17. ON 0800 rounds Pt alert and oriented, denies pain and nausea. Call light within reach, side rails up x 2 and padded, bed in low position and locked. Will continue to monitor.
--- NOTE | 2017-02-02 08:44 | NUR ---
REFUSED ATIVAN Pt refused am ativan dose. States she wishes to be discharged as soon as possible. CIWA 1.
--- NOTE | 2017-02-02 08:46 | NUR ---
START OF SHIFT NOTE CONTINUED RN did not state in original start of shift note that report received from night RN. Last CIWA 2. Does not want to take ativan today, wanting to be discharged as soon as possible. Given PRN Benadryl, Motrin and Zofran last night. Slept 8 hours.
[2017-02-02] MEDS ORDERED: LORAZEPAM 1 MG TABLET PO SCH ×2 (09:00)
[2017-02-02] MEDS ORDERED: IBUP-1953 PO (11:19)
[2017-02-02] MEDS ORDERED: GABA-534 PO ×2 (11:19)
[2017-02-02] MEDS ORDERED: DIPH50CA37 PO (11:19)
[2017-02-02] MEDS ORDERED: PANT40TA2 PO (11:19)
--- NOTE | 2017-02-02 12:30 | NUR ---
PT REFUSED TO SIGN DISCHARGE PAPERWORK RN requested Pt to wait for paperwork to be completed in a few minutes and would need to sign and receive discharge paper work. When no prescriptions found in chart Dr. Pennington was contacted to complete discharge prescriptions. stated patient had already left. RN spoke to social media campaign manager Jolynn and she stated patient had left. Jolynn asked to speak with Maria T, PCT slate splitting supervisor. Maria T stated patient had informed her that she had signed discharge paper work. manganese wheeler and RN signed paperwork that patient refused to sign. Home medication given to AMOS Neil.
== END 2017-02-02 11:35 | disposition home or self-care (01) | DRG 895 ==
LOC: SRC 22:32
PROVIDERS: ADMIT Internal Medicine; ATTEND Internal Medicine
PROC: HZ2ZZZZ Detoxification Services for Substance Abuse Treatment (ICD-10-PCS; principal; 2017-01-28)
PROC: HZ41ZZZ Group Counseling for Substance Abuse Treatment, Behavioral (ICD-10-PCS; 2017-01-30)
PROC: HZ31ZZZ Individual Counseling for Substance Abuse Treatment, Behavioral (ICD-10-PCS; 2017-01-31)
DX: F10.232 Alcohol dependence with withdrawal with perceptual disturbance (principal); F15.221 Other stimulant dependence with intoxication delirium; K70.10 Alcoholic hepatitis without ascites; I15.9 Secondary hypertension, unspecified; Y90.7 Blood alcohol level of 200-239 mg/100 ml; F41.9 Anxiety disorder, unspecified; Z81.1 Family history of alcohol abuse and dependence; Z80.0 Family history of malignant neoplasm of digestive organs; K21.9 Gastro-esophageal reflux disease without esophagitis; K58.1 Irritable bowel syndrome with constipation; E87.6 Hypokalemia; E83.42 Hypomagnesemia; D64.9 Anemia, unspecified; F32.9 Major depressive disorder, single episode, unspecified
CPT/HCPCS: 36415; 70030-TC; 80307; 80324; 80346; 83735; 85025; 86580; 86592; 86705; 86803; 87340; 87806; G0480; J3411; Q0162; Q0163

== ENCOUNTER 2018-01-18 14:24 | Inpatient (IN) | payer BC, OTHER ==
[~2018-01-18] VITALS: Ht 175.3 cm; Wt 52.2 kg
[~2018-01-18 14:24] MED LIST: DIPH50CA37 PO; GABA-534 PO; IBUP-1953 PO; PANT40TA2 PO
--- NOTE | 2018-01-21 15:30 | NUR ---
PRE ADMISSION Pt 27 y/o transgender male who identifies female admitted for etoh and benzo withdrawal. Alert and oriented to name, place, and time. Perrla. Skin warm to touch. Respirations even and unlabored. Explained rules of unit with acknowledgement.
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
[2018-01-21 16:00] VITALS: BP 144/81
[2018-01-21] MEDS ORDERED: LORAZEPAM 2 MG/1 ML VIAL IM PRN (16:00)
[2018-01-21] MEDS ORDERED: IBUPROFEN 600 MG TABLET PO PRN (16:00)
[2018-01-21] MEDS ORDERED: MAGNESIUM HYDROXIDE 30 ML LIQUID UDC PO PRN (16:00)
[2018-01-21] MEDS ORDERED: CLONIDINE HCL 0.1 MG TABLET PO PRN (16:00)
[2018-01-21] MEDS ORDERED: MAG HYDROX/AL HYDROX/SIMETH 30 ML LIQUID UDC PO PRN (16:00)
[2018-01-21] MEDS ORDERED: LORAZEPAM 1 MG TABLET PO PRN ×2 (16:00)
[2018-01-21] MEDS ORDERED: ONDANSETRON 4 MG/2 ML VIAL IM PRN (16:00)
[2018-01-21] MEDS ORDERED: MIRALAX 17 GM POWD.PACK PO PRN (16:00)
[2018-01-21] MEDS ORDERED: THIAMINE HCL 200 MG/2 ML VIAL IM ONE (16:00)
[2018-01-21] MEDS ORDERED: ONDANSETRON ODT 4 MG TAB.RAPDIS SL PRN (16:00)
[2018-01-21] MEDS ORDERED: 5 DAY PHENOBARBITAL TAPER -SERENITY PROTOCOL PO PRN (16:15)
[2018-01-21] MEDS: GABAPENTIN 300 MG CAPSULE PO SCH ×2 (17:00→20:45)
[2018-01-21 17:19] LABS: *AMPHETAMINE, URINE POSITIVE (NEGATIVE); *BARBITURATE, URINE NEGATIVE (NEGATIVE); *CANNABINOID, URINE NEGATIVE (NEGATIVE); *COCCAINE, URINE NEGATIVE (NEGATIVE); *OPIATE, URINE POSITIVE (NEGATIVE); *PHENCYCLIDINE SCREEN,URINE NEGATIVE (NEGATIVE)
[2018-01-21 17:21] LABS: ETHANOL < 3 MG/DL (0-0)
[2018-01-21 17:25] LABS: BASOPHILS # (AUTO) 0.1 K/uL (0.0-8.0); EOSINOPHILS % (AUTO) 0.1 % (0.0-7.0); HEMATOCRIT 44.4 % (36.7-47.1); HEMOGLOBIN 15.2 g/dL (12.5-16.3); LYMPHOCYTES # (AUTO) 1.7 K/uL (20.0-40.0); LYMPHOCYTES % (AUTO) 14.6 % (20.5-51.5); MEAN CORPUSCULAR HGB CONC 34 g/dL (32.5-36.3); MEAN CORPUSCULAR VOLUME 93.3 fL (73.0-96.2); MONOCYTES # (AUTO) 0.6 K/uL (2.0-10.0); MONOCYTES % (AUTO) 5.1 % (0.0-11.0); NEUTROPHILS # (AUTO) 9.4 K/uL (1.8-8.9); NEUTROPHILS % (AUTO) 79.2 % (38.5-71.5); PLATELET COUNT (AUTO) 416 K/uL (152-348); RED BLOOD CELL COUNT(AUTO) 4.75 MIL/uL (4.06-5.63); WHITE BLOOD COUNT (AUTO) 11.8 K/uL (3.6-10.2)
[2018-01-21 17:26] LABS: ALANINE AMINOTRANSFERASE 22 U/L (16-63); ALKALINE PHOSPHATASE 87 U/L (50-136); AMYLASE 29 U/L (25-115); ASPARTATE AMINOTRANSFERASE 19 U/L (15-37); BILIRUBIN,TOTAL 1.4 mg/dL (0.2-1.0); CARBON DIOXIDE 30 mmol/L (21-32); CHLORIDE 98 mmol/L (98-107); CREATININE 1.1 mg/dL (0.6-1.3); GLUCOSE 170 mg/dL (74-106); LIPASE 112 U/L (73-393); MAGNESIUM 1.8 mg/dL (1.8-2.4); POTASSIUM 3.7 mmol/L (3.5-5.1); TOTAL PROTEIN, SERUM 7.4 g/dL (6.4-8.2); UREA NITROGEN, BLOOD 20 mg/dL (7-18)
--- NOTE | 2018-01-21 19:24 | NUR ---
END OF SHIFT Pt 22 y/o male admitted for etoh and benzo withdrawal. Pt alert and oriented to name, place, and time. Perrla. Skin warm and moist to touch. Respirations even and unlabored. Appears disheveled and unkempt. Hair uncombed. Encouraged to maintain hygiene. Anxious and restless on admission, but remained in bed with eyes closed resting, around 1700 until now. Last ciwa =4 @1600. Pt will start a 5 day Phenobarbital taper on 01/22/18. Pt also on a prn ativan today. Pt was seen and evaluated by . Bed on lowest position with side rails x2 up for safety. Call light within reach.
--- NOTE | 2018-01-21 19:30 | NUR ---
Start of shift note Received report from day shift nurse. Patient is 29 year old transgender male who identifies as female newly admitted for ETOH and Benzo withdrawal. Patient was placed on 5 day Phenobarbital taper, starting tomorrow. PRN available. Patient was given Mylanta. Last CIWA 4. Patient in the room. Patient presents with flat affect, eye avoidant, anxious, restless, sweating, sensitive to light and sound, difficulty concentrating, bilateral hand tremors and headache. Safety measures in place. Call light in reach. Will continue to monitor.
[2018-01-21 20:00] VITALS: BP 122/67
--- NOTE | 2018-01-21 20:00 | NUR ---
CIWA assessment Patient presents with anxiety, restless, worried , intermittent perspiration, restless legs, difficulty concentrating and tremors felt but not observed. CIWA 11 Addendum: 01/21/18 at 2244 by MANNY ANDRE LVN ERROR: this charting is for another patient
--- NOTE | 2018-01-21 20:00 | NUR ---
CIWA assessment Patient anxious, restless, irritable, sweating, sensitive to light and sound, bilateral hand tremors, difficulty concentrating, and headache. CIWA 11.
[2018-01-21] MEDS: LEVETIRACETAM 500 MG TABLET PO SCH (20:45)
--- NOTE | 2018-01-21 20:58 | NUR ---
PRN Ativan administration Patient anxious, restless, sweating, sensitive to light and sound, bilateral hand tremors and headache CIWA 11.
[2018-01-21] MEDS ORDERED: LEVETIRACETAM 500 MG/5 ML LIQUID UDC NG SCH (21:00)
--- NOTE | 2018-01-21 21:58 | NUR ---
PRN Ativan re-assessment Patient lying in bed with eyes closed. Respiration even and unlabored. Will continue to monitor. CIWA deferred
[2018-01-22] VITALS: BP 118/74
--- NOTE | 2018-01-22 | NUR ---
CIWA deferred Patient lying in bed with eyes closed. Respiration even and unlabored. Will continue to monitor.
[2018-01-22 04:00] VITALS: BP 100/60
--- NOTE | 2018-01-22 04:00 | NUR ---
CIWA deferred Patient lying in bed with eyes closed. Respiration even and unlabored. Will continue to monitor.
--- NOTE | 2018-01-22 07:18 | NUR ---
End of shift note Patient slept 10 hours. Fluid intake 500 ml. Voided x 1. No BM. Monitored patient throughout shift. Patient in his room most of the shift. Patient withdrawn . Patient presented with flat affect, eye avoidant, anxious, restless, sweating, sensitive to light and sound, bilateral hand tremors and headache. Scheduled medication given as ordered. Taper to start tomorrow. PRN Ativan given at 2057 for CIWA 11. Safety measures in place. Call light in reach. Will continue to monitor. Last CIWA 11.
--- NOTE | 2018-01-22 07:25 | NUR ---
Start of shift note; Received report from night nurse. Patient is a 27 year old transgender male identified as female admitted on 01/21/18 for Benzodiazepine and ETOH withdrawal. Patient to start 5 day Phenobarbital taper today. Patient slept for 10 hours. Patient's last CIWA score is 11 per endorsement. Patient presented with anxiety, restless legs, intermittent sweats, generalized discomfort, agitation. All safety measures secured. Will continue to monitor patient.
--- NOTE | 2018-01-22 07:40 | NUR ---
Clarification of Substance History (Heroin) Heroin (smokes)- Used twice. Last use was 1 gram on 01/21/18.
[2018-01-22 08:00] VITALS: BP 100/65
--- NOTE | 2018-01-22 08:00 | NUR ---
CIWA assessment; Patient's current CIWA is 16 manifested by anxiety, agitation, stomach cramps, avoidant to eye contact, generalized discomfort, difficulty concentrating, headache . Patient to start 5 Day Phenobarbital today per MD order.Will continue to monitor patient.
[2018-01-22] MEDS ORDERED: TUBERCULIN,PURIF.PROT.DERIV. 5 TU/0.1 ML TEST ID ONE (09:00)
[2018-01-22] MEDS: LEVETIRACETAM 500 MG TABLET PO SCH ×2 (09:13→21:05)
[2018-01-22] MEDS: MULTIVITAMINS,THERAPEUTIC TABLET PO SCH (09:13)
[2018-01-22] MEDS: PHENOBARBITAL 60 MG TABLET PO SCH ×3 (09:13→21:04)
[2018-01-22] MEDS: GABAPENTIN 300 MG CAPSULE PO SCH ×3 (09:13→21:05)
[2018-01-22] MEDS: FOLIC ACID 1 MG TABLET PO SCH (09:13)
[2018-01-22] MEDS: THIAMINE HCL 100 MG TABLET PO SCH (09:13)
[2018-01-22] MEDS: PANTOPRAZOLE SODIUM 40 MG TABLET.DR PO SCH (09:13)
[2018-01-22 12:00] VITALS: BP 115/80
--- NOTE | 2018-01-22 13:30 | NUR ---
UA collected; Urine sample collected and sent to LAB for urinalysis to rule out UTI.
--- NOTE | 2018-01-22 13:41 | NUR ---
PRN medication; Patient is complaining of nausea, PRN Zofran 4mg ODT given to help prevent further nausea. Will continue to monitor pt. for effectiveness of medication.
--- NOTE | 2018-01-22 14:41 | NUR ---
Re-assessment; Patient denies nausea at this time. PRN Zofran noted to be effective.
[2018-01-22 16:00] VITALS: BP 128/78
--- NOTE | 2018-01-22 16:00 | NUR ---
CIWA assessment; Patient's current CIWA is 14 manifested by anxiety, agitation, stomach cramps, avoidant to eye contact, generalized discomfort, difficulty concentrating, headache , anhedonia, intermittent sweats, malaise, fatigue. Patient was started on Phenobarbital today per MD order.Will continue to monitor patient.
--- NOTE | 2018-01-22 18:23 | NUR ---
End of shift note; Patient is AOx4, presented with anxiety, agitation, stomach cramps, avoidant to eye contact, generalized discomfort, anhedonia, fatigue, intermittent sweats. Last CIWA score of 14 at 1600. Patient was placed on 5 day Phenobarbital taper to help reduce withdrawal symptoms. Medications were effective in reducing withdrawal symptoms.Patient received PRN Zofran , noted to be effective. Patient remained compliant with treatment plan and medication regime. Patient participated in group activities and therapies. All safety measures secured. Met all needs.
--- NOTE | 2018-01-22 19:30 | NUR ---
START OF SHIFT Pt is a 27 year old transgender male, prefers to be identified as female.She was admitted on 01/21/18 for Benzodiazepine and ETOH withdrawal.Pt received in room,A/A/O X 4; C/O withdrawal symptoms such as anxiety, agitation, stomach cramps, generalized discomfort, fatigue and intermittent sweats. Pt continues on Phenobarbital taper as ordered; no A/R noted. Pt received PRN Zofran during the day, noted to be effective. Pt is compliant with medication regime. All safety measures in place. Will continue to monitor for safety.
[2018-01-22 20:00] VITALS: BP 120/72
--- NOTE | 2018-01-22 20:00 | NUR ---
CIWA - 12 Manifested by anxiety, agitation, restlessness, generalized discomfort and headache . Pt to start 5 Day Phenobarbital tonight; medication is soon due. Will continue to monitor patient.
[2018-01-23] VITALS: BP 115/58
--- NOTE | 2018-01-23 | NUR ---
CIWA DIFFERED PT IS RESTING IN BED WITH EYES CLOSED.BREATHING IS EVEN AND NON LABORED,NO S/S OF DISTRESS NOTED.CIWA DIFFERED DUE TO PT BEING ASLEEP.
--- NOTE | 2018-01-23 04:00 | NUR ---
CIWA DEFERRED Pt is in deep sleep,breathing is even and non labored,no s/s of distress noted,ciwa deferred,v/s refused,will continue to monitor.
--- NOTE | 2018-01-23 06:50 | NUR ---
END OF SHIFT Pt is a 27 year old transgender male, prefers to be identified as female.She was admitted on 01/21/18 for Benzodiazepine and ETOH withdrawal.Pt is a/o x 4. Pt continues on Phenobarbital taper as ordered; no A/R noted.No PRN meds given last night.Pt slept 6 hours,fluid intake was 896 ml,voided x 2. Pt is compliant with medication regime. PO fluids encouraged as rolerated.All safety measures in place. Will continue to monitor for safety.
--- NOTE | 2018-01-23 07:31 | NUR ---
START OF SHIFT Pt is a 27 yr old transgender female, admitted on 01/21/18 for Benzo/ETOH withdrawal and is on 5 day Phenobarbital taper as ordered. Received report from police shift commander nurse. No PRN's were given during the night. Last CIWA score was 12 at 1999. Pt slept for 6 hrs and remains in bed sleeping with respirations even and unlabored. Skin is intact, warm and moist to touch. Safety precautions observed. Call light is within reach. Will continue to monitor.
[2018-01-23 07:38] LABS: BILIRUBIN,DIRECT 0.1 mg/dL (0.0-0.2); BILIRUBIN,TOTAL 0.3 mg/dL (0.2-1.0); CREATININE 0.9 mg/dL (0.6-1.3); POTASSIUM 3.6 mmol/L (3.5-5.1); TOTAL PROTEIN, SERUM 5.8 g/dL (6.4-8.2)
[2018-01-23 08:00] VITALS: BP 107/70
[2018-01-23 08:08] LABS: BASOPHILS # (AUTO) 0.1 K/uL (0.0-8.0); EOSINOPHILS # (AUTO) 0.5 K/uL (0.0-0.7); LYMPHOCYTES # (AUTO) 2.4 K/uL (20.0-40.0); MONOCYTES # (AUTO) 0.5 K/uL (2.0-10.0)
[2018-01-23 08:16] LABS: BASOPHILS % (AUTO) 1.2 % (0.0-2.0); EOSINOPHILS % (AUTO) 7.2 % (0.0-7.0); LYMPHOCYTES % (AUTO) 33.5 % (20.5-51.5); MEAN CORPUSCULAR HEMOGLOBIN 32.5 uug (23.8-33.4); MEAN CORPUSCULAR HGB CONC 35 g/dL (32.5-36.3); MEAN CORPUSCULAR VOLUME 93.9 fL (73.0-96.2); MONOCYTES % (AUTO) 7.3 % (0.0-11.0); NEUTROPHILS # (AUTO) 3.7 K/uL (1.8-8.9); NEUTROPHILS % (AUTO) 50.8 % (38.5-71.5); RED BLOOD CELL COUNT(AUTO) 4.22 MIL/uL (4.06-5.63)
[2018-01-23 08:17] LABS: HEMATOCRIT 39.7 % (36.7-47.1); HEMOGLOBIN 13.7 g/dL (12.5-16.3); PLATELET COUNT (AUTO) 270 K/uL (152-348); WHITE BLOOD COUNT (AUTO) 7.2 K/uL (3.6-10.2)
[2018-01-23] MEDS: GABAPENTIN 300 MG CAPSULE PO SCH ×3 (09:28→20:29)
[2018-01-23] MEDS: PANTOPRAZOLE SODIUM 40 MG TABLET.DR PO SCH (09:28)
[2018-01-23] MEDS: MULTIVITAMINS,THERAPEUTIC TABLET PO SCH (09:28)
[2018-01-23] MEDS: FOLIC ACID 1 MG TABLET PO SCH (09:29)
[2018-01-23] MEDS: LEVETIRACETAM 500 MG TABLET PO SCH ×2 (09:29→20:28)
[2018-01-23] MEDS: THIAMINE HCL 100 MG TABLET PO SCH (09:29)
[2018-01-23] MEDS: PHENOBARBITAL 60 MG TABLET PO SCH ×4 (09:29→20:34)
--- NOTE | 2018-01-23 09:30 | NUR ---
CIWA ASSESSMENT Pt is noted with anxiety and agitation. Pt is not speaking out loud and pressured. Pt is observed tensed and fidgety. Pt is c/o headache, sweats, pins and needles and tremors. CIWA score was 15. Pt was given Phenobarbital 30mg PO as scheduled at 0900. Medication was dimitri well. Pt was encouraged increase fluid intake for hydration. Will continue to monitor.
[2018-01-23 10:56] LABS: HEPATITIS B SURFACE AG Negative (Negative)
[2018-01-23 12:00] VITALS: BP_SYST 110; BP_SYST 125; BP_DIAS 61; BP_DIAS 89
--- NOTE | 2018-01-23 12:10 | NUR ---
Therapist prompted client to attend all group therapy sessions.
--- NOTE | 2018-01-23 12:48 | NUR ---
PRN GIVEN pt is c/o headache /10. Motrin 600mg PO PRN was given as ordered. Pt was encouraged increase fluid intake. Pt was also c/o anxiety, agitation, sensitivity to light, pins and needles and sweats. Pt is observed with flat affect and fine tremors. CIWA score was 16. Phenobarbital 30mg PO as scheduled at 1300 was given. Medication dimitri well. Will continue to monitor.
--- NOTE | 2018-01-23 13:48 | NUR ---
PRN RE-ASSESSMENT Motrin PRN was effective. Pt denies any headache at this time. Encouraged increase fluid intake. Will continue to monitor.
[2018-01-23 16:00] VITALS: BP 117/74
--- NOTE | 2018-01-23 19:00 | NUR ---
END OF SHIFT Pt is a 27 yr old transgender female AA&Ox4. Pt was admitted on 01/21/18 for ETOH/ Benzo withdrawal and is on 5 day Phenobarbital taper as ordered. Pt has been cooperative with medication regimen and plan of care. Pt has been observed attending group therapy. Pt was c/o anxiety, agitation, sweats, chills, headache, restlessness, sensitivity to light and pins and needles. Pt received Motrin PRN at 1248 for headache. Medication was effective. Last CIWA score was 12 at 1600. Pt was encouraged increase fluid intake for hydration. Safety precautions observed. Call light is within reach. Endorsed to arborist representative nurse to continue to monitor.
--- NOTE | 2018-01-23 19:30 | NUR ---
START OF SHIFT Received 27 year old male transition to female patient admitted on 01/21/18 for ETOH and Benzodiazepine withdrawal. Pt is alert and oriented x4. She is noted with anxiety, irritability, restlessness and agitation. Pt is hyperverbal is complains of mild tremors. Per endorsement, she received PRN Motrin. Last CIWA:12 @ 1600. Breathing is even and unlabored, safety measures in place. Will continue to monitor.
--- NOTE | 2018-01-23 20:00 | NUR ---
CIWA Pt noted with increased anxiety, agitation, restlessness and irritability. Pt verbalizes feelings of low-self esteem and appears worried. CIWA:18 prior to administration of 2100 medications. Will continue to monitor.
[2018-01-23 20:06] VITALS: BP 141/86
[2018-01-23] MEDS ORDERED: TRAZODONE 50 MG TABLET PO ONE (21:00)
[2018-01-24] VITALS: BP 116/68
--- NOTE | 2018-01-24 | NUR ---
CIWA DEFERRED 0000 CIWA deferred d/t pt lying in bed with eyes closed noted to be asleep. Breathing is even and unlabored, safety measures in place. Will monitor.
--- NOTE | 2018-01-24 04:00 | NUR ---
VITALS REFUSED, CIWA DEFERRED 0400 vitals refused. CIWA deferred d/t pt lying in bed with eyes closed noted to be asleep. Breathing is even and unlabored, safety measures in place. Will monitor.
--- NOTE | 2018-01-24 07:09 | NUR ---
END OF SHIFT Pt is a 27 year old female patient admitted on 01/21/18 for ETOH and Benzodiazepine withdrawal. She remains alert and oriented x4. She was noted with increased anxiety, irritability, restlessness and agitation during the shift. She did not receive or request PRN medications. Pt requested for one time Trazodone 50 mg for sleep, but then refused to take it and reported she did not need sleeping medication anymore. She slept a total of 8 hrs, Intake: 1,355mL, Void: x2, BM:0, Last CIWA: 12 at 2130. Breathing is even and unlabored, safety measures in place. Endorsed to AM shift.
--- NOTE | 2018-01-24 07:40 | NUR ---
START OF SHIFT Pt is a 27 yr old transgender female, admitted on 01/21/18 for Benzo/ETOH withdrawal and is on 5 day Phenobarbital taper as ordered. Received report from office runner nurse. No PRN's were given during the night. Last CIWA score was 12 at 2130. Pt slept for 8 hrs and remains in bed sleeping with respirations even and unlabored. Skin is intact, warm and moist to touch. Pt is noted with multiple open bottles of water and food wrappers on bedside table. Safety precautions observed. Call light is within reach. Will continue to monitor.
[2018-01-24 08:00] VITALS: BP 95/64
[2018-01-24] MEDS: THIAMINE HCL 100 MG TABLET PO SCH (09:07)
[2018-01-24] MEDS: PANTOPRAZOLE SODIUM 40 MG TABLET.DR PO SCH (09:07)
[2018-01-24] MEDS: LEVETIRACETAM 500 MG TABLET PO SCH (09:07)
[2018-01-24] MEDS: FOLIC ACID 1 MG TABLET PO SCH (09:07)
[2018-01-24] MEDS: MULTIVITAMINS,THERAPEUTIC TABLET PO SCH (09:07)
[2018-01-24] MEDS: GABAPENTIN 300 MG CAPSULE PO SCH (09:07)
[2018-01-24] MEDS: PHENOBARBITAL 60 MG TABLET PO SCH ×2 (09:07→15:00)
--- NOTE | 2018-01-24 09:08 | NUR ---
CIWA ASSESSMENT Pt is noted with increase anxiety, agitation and hyperverbal, stating she want to leave AMA by the evening. Pt states, "the doctor is titrating me too fast, last night I just wanted to leave and drink" Pt was speaking out loud in an anger tone of voice. Pt was redirected and encouraged to continue with treatment. Pt agreed to stay. CIWA score was 12. Pt received Phenobarbital 30mg PO as scheduled at 0900. Medication dimitri well. Will continue to monitor.
[2018-01-24] MEDS ORDERED: QUETIAPINE FUMARATE 25 MG TABLET PO PRN (09:30)
[2018-01-24 12:00] VITALS: BP 131/73
--- NOTE | 2018-01-24 12:00 | NUR ---
CIWA ASSESSMENT Pt is noted with increase anxiety, agitation and hyperverbal, stating she want to leave AMA. Pt states, "I don't think I really need to be here, I need to go back to work". Pt was redirected by multiple staff members and encouraged to continue with treatment. Pt agreed to stay. CIWA score was 12. Will continue to monitor.
--- NOTE | 2018-01-24 16:01 | NUR ---
AMA NOTE Pt was stating throughout the morning that she wanted to leave AMA. Pt stated, "I need to get back to work". Pt was educated on the risks and benefits of continuing with treatment by multiple staff members including Dr. Salinas, case management and therapist. Pt was adamant on leaving AMA. Pt was given community resources. No SI/HI noted. Pt left the unit at 1601 in stable condition with all belongings and valuables. No home medication was brought.
[2018-01-25] MEDS ORDERED: PHENOBARBITAL 60 MG TABLET PO SCH (09:00)
[2018-01-26] MEDS ORDERED: PHENOBARBITAL 60 MG TABLET PO SCH (09:00)
== END 2018-01-24 16:01 | disposition left against medical advice (07) | DRG 894 ==
LOC: SRC 01-21 13:11
PROVIDERS: ADMIT Internal Medicine; ATTEND Internal Medicine
PROC: HZ2ZZZZ Detoxification Services for Substance Abuse Treatment (ICD-10-PCS; principal; 2018-01-21)
PROC: HZ41ZZZ Group Counseling for Substance Abuse Treatment, Behavioral (ICD-10-PCS; 2018-01-22)
PROC: HZ31ZZZ Individual Counseling for Substance Abuse Treatment, Behavioral (ICD-10-PCS; 2018-01-23)
DX: F10.230 Alcohol dependence with withdrawal, uncomplicated (principal); R17 Unspecified jaundice; F15.229 Other stimulant dependence with intoxication, unspecified; F11.10 Opioid abuse, uncomplicated; Y90.9 Presence of alcohol in blood, level not specified; K58.9 Irritable bowel syndrome, unspecified; K21.9 Gastro-esophageal reflux disease without esophagitis; F13.239 Sedative, hypnotic or anxiolytic dependence with withdrawal, unspecified; F41.9 Anxiety disorder, unspecified; F17.210 Nicotine dependence, cigarettes, uncomplicated; Z79.899 Other long term (current) drug therapy; Z81.1 Family history of alcohol abuse and dependence; Z80.0 Family history of malignant neoplasm of digestive organs; E86.0 Dehydration; D72.829 Elevated white blood cell count, unspecified; F64.9 Gender identity disorder, unspecified
CPT/HCPCS: 36415; 70030-TC; 80307; 80324; 80346; 80361; 83690; 83735; 85025; 86592; 86705; 86803; 87340; 87806; G0480; J3411; J8499; Q0162